=== PATIENT | female | born 1995 | race Caucasian/White ===

== ENCOUNTER 2016-06-05 01:06 | Emergency (ER) | payer OTHER ==
[2016-06-05 03:00] LABS: EOSINOPHIL 1.4 % (0-5); HCT 37.7 % (37.0-47.0); HGB 12.4 g/dl (12.5-16.0); LYMPHOCYTE 32.7 % (15-48); MCH 31.9 pg (25.0-31.0); MCHC 32.9 g/dL (32.0-36.0); MCV 96.9 fL (78.0-100.0); MONOCYTE 8.9 % (0-12); MPV 10.3 fL (6.0-9.5); PLT 273 K/uL (150-400); RBC 3.89 M/uL (4.20-5.40); WBC 8.4 K/uL (4.0-10.5)
== END 2016-06-05 03:36 | disposition home or self-care (01) ==
LOC: FER 01:06
PROVIDERS: Emergency Medicine
DX: O72.1 Other immediate postpartum hemorrhage (principal); O99.89 Other specified diseases and conditions complicating pregnancy, childbirth and the puerperium; R10.2 Pelvic and perineal pain; O99.335 Smoking (tobacco) complicating the puerperium
CPT/HCPCS: 36415; 85025; 99284

== ENCOUNTER 2016-09-04 14:40 | Emergency (ER) | payer OTHER ==
[2016-09-04 15:06] LABS: BILIRUBIN NEGATIVE (NEGATIVE); BLOOD NEGATIVE Ery/uL (NEGATIVE); CLARITY CLEAR (CLEAR); COLOR YELLOW (YELLOW); GLUCOSE (U) NORMAL (NORMAL); KETONE (U) NEGATIVE (NEGATIVE); LEUKOCYTES NEGATIVE Leu/uL (NEGATIVE); NITRITE NEGATIVE (NEGATIVE); PROTEIN NEGATIVE (NEGATIVE)
[2016-09-04 15:18] LABS: BASOPHIL 0.8 % (0-2); EOSINOPHIL 1.9 % (0-5); HCT 39.7 % (37.0-47.0); HGB 13.1 g/dl (12.5-16.0); LYMPHOCYTE 21.4 % (15-48); MCH 29.9 pg (25.0-31.0); MCV 90.6 fL (78.0-100.0); MONOCYTE 8.7 % (0-12); MPV 10.7 fL (6.0-9.5); NEUTROPHIL 67.2 % (41-80); PLT 255 K/uL (150-400); RBC 4.38 M/uL (4.20-5.40); RDW 14.7 % (11.5-14.0); WBC 8.4 K/uL (4.0-10.5)
== END 2016-09-04 16:20 | disposition home or self-care (01) ==
LOC: FER 14:40
PROVIDERS: Emergency Medicine
DX: O99.89 Other specified diseases and conditions complicating pregnancy, childbirth and the puerperium (principal); R10.2 Pelvic and perineal pain; M54.5 Low back pain; O99.331 Smoking (tobacco) complicating pregnancy, first trimester; F17.210 Nicotine dependence, cigarettes, uncomplicated; Z88.5 Allergy status to narcotic agent; Z3A.10 10 weeks gestation of pregnancy
CPT/HCPCS: 36415; 81003; 84702; 84703; 85025; 99284

== ENCOUNTER 2020-04-17 16:59 | Emergency (ER) | payer OTHER ==
[~2020-04-17 16:59] MED LIST: IBUPROFEN800 MG PO; PRENATAL FORMU1 EACH PO
== END 2020-04-17 18:45 | disposition home or self-care (01) ==
LOC: FER 16:59
DX: R20.2 Paresthesia of skin (principal)
CPT/HCPCS: 99283

== ENCOUNTER 2020-06-15 13:37 | Emergency (ER) | payer OTHER ==
[2020-06-15 14:51] LABS: BILIRUBIN NEGATIVE (NEGATIVE); BLOOD NEGATIVE Ery/uL (NEGATIVE); CLARITY CLEAR (CLEAR); COLOR YELLOW (YELLOW); GLUCOSE (U) NORMAL (NORMAL); LEUKOCYTES 2+ Leu/uL (NEGATIVE); NITRITE NEGATIVE (NEGATIVE); PROTEIN NEGATIVE (NEGATIVE); UROBILINOGEN 0.2 mg/dL (0.2-1.0); pH 7.5 (5.0-9.0)
[2020-06-15 15:02] LABS: BACTERIA TRACE
[2020-06-15 15:54] LABS: BASOPHIL 0.8 % (0-2); EOSINOPHIL 1.6 % (0-5); HCT 40.3 % (37.0-47.0); HGB 13.6 g/dl (12.5-16.0); LYMPHOCYTE 21.8 % (15-48); MCH 33.5 pg (25.0-31.0); MCHC 33.7 g/dL (32.0-36.0); MCV 99.3 fL (78.0-100.0); MONOCYTE 7.2 % (0-12); MPV 11.3 fL (6.0-9.5); NEUTROPHIL 68.5 % (41-80); NRBC 0; PLT 193 K/uL (150-400); RBC 4.06 M/uL (4.20-5.40); RDW 11.9 % (11.5-14.0); WBC 7.3 K/uL (4.0-10.5)
[2020-06-15 15:59] LABS: ALBUMIN 3.8 g/dL (3.4-5.0); BILIRUBIN - TOTAL 0.4 mg/dL (0.2-1.0); BUN/CREAT RATIO (CALC) 12.1 RATIO; CREATININE 0.58 mg/dL (0.51-0.95); GLOBULIN (CALCULATION) 3.3 g/dL; POTASSIUM 3.7 mmol/L (3.5-5.1); TOTAL PROTEIN 7.1 g/dL (6.4-8.2)
== END 2020-06-15 19:12 | disposition home or self-care (01) ==
LOC: FER 13:37
PROVIDERS: Nurse Practitioner Family
DX: N94.89 Other specified conditions associated with female genital organs and menstrual cycle (principal); N39.0 Urinary tract infection, site not specified; R63.0 Anorexia; F17.210 Nicotine dependence, cigarettes, uncomplicated
CPT/HCPCS: 36415; 80053; 81001; 85025; 87088; J1885; J2405; J7030; Q9967